=== PATIENT | female | born 1960 | race Caucasian/White ===

== ENCOUNTER → 2016-10-24 | Outpatient (CLI) | payer MEDICARE, MEDICAID ==
[2015-11-02 21:12] VITALS: BP 178/86
[~2016-10-24] MED LIST: ACLI400A2 IH; BACL10TA PO; CIPR500T PO; CITA40TA12 PO; GUAI1TAB27 PO; LISI10TA2 PO; POTASSIUM CHLO10 MEQ PO; PROAIR HFA8.5 GM INH; PROP10TA PO; QUET150T PO; TRAZ100T12 PO; hydrocodone
--- NOTE | 2016-10-24 09:02 | RAD ---
DATE: 10/24/2016 EXAM: DIGITAL SCREEN BILAT W/CAD HISTORY: Routine screening COMPARISON: Baseline study This study was interpreted with the benefit of Computerized Aided Detection (CAD). The breast parenchyma shows scattered fibroglandular densities. Breast parenchyma level B. FINDINGS: There are several tiny smooth nodules projected over the axillary tail regions of the breasts compatible with intramammary lymph nodes. No suspicious breast densities are seen. No significant microcalcifications are evident. IMPRESSION: There is no mammographic evidence of malignancy in either breast. BI-RADS CATEGORY: 2 BENIGN FINDING(S) RECOMMENDED FOLLOW-UP: 12M 12 MONTH FOLLOW-UP PQRS compliance statement: Patient information was entered into a reminder system with a target due date for the next mammogram. Mammography is a sensitive method for finding small breast cancers, but it does not detect them all and is not a substitute for careful clinical examination. A negative mammogram does not negate a clinically suspicious finding and should not result in delay in biopsying a clinically suspicious abnormality. "Our facility is accredited by the [employer] Mammography Program."
--- NOTE | 2016-10-24 09:12 | RAD ---
Abdominal ultrasound, 10/24/2016: History: Right upper quadrant pain The gallbladder is within normal limits in size. There is no sonographic evidence of cholelithiasis. The gallbladder dunbar are not thickened. The common hepatic duct is of normal caliber. The visualized portions of the liver, pancreas and spleen are unremarkable. There is aortic atherosclerosis without evidence of aneurysm. The inferior vena cava is unremarkable. There is a 1.3 cm cyst in the upper pole of the right kidney. A 1.6 cm cyst is noted laterally in the left kidney. The kidneys are otherwise unremarkable without evidence of obstruction. No free fluid is evident in the abdomen. IMPRESSION: 1. Single bilateral renal cysts. 2. No acute abdominal abnormality is detected.
== END | disposition home or self-care (01) ==
LOC: US 06:41
PROVIDERS: ATTEND Physician Assistant
DX: Z12.31 Encounter for screening mammogram for malignant neoplasm of breast (principal); R10.11 Right upper quadrant pain; N28.1 Cyst of kidney, acquired
CPT/HCPCS: 76700; G0202; 77067

== ENCOUNTER → 2016-10-30 | Outpatient (CLI) | payer MEDICARE, MEDICAID ==
[2015-11-02 21:12] VITALS: BP 178/86
--- NOTE | 2016-10-30 14:25 | RAD ---
Screening for lung malignancy. History of smoking. Noncontrast imaging suggested the chest was performed. No prior CT imaging of the chest is available. Imaging through the upper abdomen is unremarkable. There is some coronary artery calcification. There is no significant hilar or mediastinal adenopathy. Kyphoplasty changes are noted at a thoracolumbar vertebral body segment. There is some mild emphysematous change in the upper lobes. An acute parenchymal infiltrate is not seen. A dominant soft tissue mass is not apparent. There is no evidence of malignancy. There is slight reticulonodular prominence in the right upper lobe, axial images 188 through 92. This is nonspecific. It may be chronic. Inflammatory focus is not excluded. IMPRESSION: Negative study for malignancy. Slight reticulonodular prominence in the right upper lobe. This is nonspecific Lung BI-RADS 2. Benign findings PQRS Compliance Statement: One or more of the following individualized dose reduction techniques were utilized for this examination: 1. Automated exposure control 2. Adjustment of the mA and/or kV according to patient size 3. Use of iterative reconstruction technique
== END | disposition home or self-care (01) ==
LOC: CT 10:33
PROVIDERS: ATTEND Physician Assistant
DX: Z12.2 Encounter for screening for malignant neoplasm of respiratory organs (principal); F17.210 Nicotine dependence, cigarettes, uncomplicated
CPT/HCPCS: 71250

== ENCOUNTER → 2017-02-06 | Outpatient (CLI) | payer MEDICARE, MEDICAID ==
[2015-11-02 21:12] VITALS: BP 178/86
[~2017-02-06] MED LIST changes: +CONTRAST GIVEN MC PRN; +IOHEXOL 240 MG/ML 50ML VIAL. PO ONE; +IOHEXOL 300 MG/ML 75 ML VIAL IV ONE
--- NOTE | 2017-02-06 14:32 | RAD ---
CT of the abdomen and pelvis with contrast, 02/06/2017: History: Right lower quadrant pain Multidetector CT imaging was performed following oral and IV administration of contrast. The liver demonstrates a prominent Larry's lobe. No hepatic mass or bile duct dilatation is seen. The gallbladder is unremarkable. No pancreatic abnormality is detected. The spleen is of normal size. There are several small cysts in both kidneys. The kidneys show no evidence of obstruction. Moderate aortoiliac calcific plaquing is present without evidence of aneurysm. No abdominal or pelvic adenopathy is seen. The uterus is surgically absent. The bowel loops are not dilated. A portion of the appendix is visualized and it shows no abnormality. No free air is present in the abdomen or pelvis. A trace amount of free fluid is present in the pelvis on the right. There there is a vertebral compression fracture with vertebroplasty change at L1. There has been a sacroplasty on the right. IMPRESSION: 1. Trace amount of free fluid in the pelvis. 2. Otherwise no acute abdominal or pelvic abnormality is detected. PQRS Compliance Statement: One or more of the following individualized dose reduction techniques were utilized for this examination: 1. Automated exposure control 2. Adjustment of the mA and/or kV according to patient size 3. Use of iterative reconstruction technique
== END | disposition home or self-care (01) ==
LOC: CT 10:01
PROVIDERS: ATTEND Physician Assistant
DX: R10.31 Right lower quadrant pain (principal); M48.56XA Collapsed vertebra, not elsewhere classified, lumbar region, initial encounter for fracture
CPT/HCPCS: 74177; Q9966; Q9967

== ENCOUNTER → 2017-10-31 | Outpatient (CLI) | payer OTHER, MEDICAID, MEDICARE | END | disposition home or self-care (01) | LOC: CT 13:59 | DX: Z12.2 Encounter for screening for malignant neoplasm of respiratory organs (principal); F17.200 Nicotine dependence, unspecified, uncomplicated; J43.8 Other emphysema; I10 Essential (primary) hypertension; Z79.899 Other long term (current) drug therapy | CPT/HCPCS: G0297 ==

== ENCOUNTER → 2018-05-27 | Outpatient (CLI) | payer OTHER, MEDICAID ==
[2015-11-02 21:12] VITALS: BP 178/86
[~2018-05-27] MED LIST changes: -ACLI400A2 IH; +ACLI400A3 IH; +ALBU2.5V8 INH; -CONTRAST GIVEN MC PRN; +GUAI1TAB10 PO; -GUAI1TAB27 PO; +IOHEXOL 300 MG/ML 100ML VIAL. IV ONE; -IOHEXOL 300 MG/ML 75 ML VIAL IV ONE; +POTA10TA12 PO; -POTASSIUM CHLO10 MEQ PO; -PROAIR HFA8.5 GM INH; -QUET150T PO; +QUET150T2 PO; +TRAZ-86 PO; -TRAZ100T12 PO
--- NOTE | 2018-05-27 12:59 | RAD ---
CT of the abdomen and pelvis with contrast, 05/27/2018: HISTORY: Right-sided abdominal pain, previous cervical cancer Multidetector CT imaging was performed following oral and IV administration of contrast. Comparison is made to a study from 02/06/2017. No hepatic abnormality is seen. The gallbladder is unremarkable. The pancreas shows no abnormality. The spleen is of normal size. Several cysts are present in both kidneys. The kidneys show no evidence of obstruction. No adrenal abnormality is detected. There is moderate aortoiliac calcific plaquing. No abdominal or pelvic adenopathy is seen. The uterus is surgically absent. The cecum is low-lying in the pelvis. The bowel loops are not dilated. The appendix is unremarkable. No free fluid or free air is evident in the abdomen or pelvis. There is cement in the right sacral wing compatible with a prior sacroplasty. There is also an old T12 vertebral compression fracture with vertebroplasty change. IMPRESSION: 1. Bilateral renal cysts. 2. No acute abdominal or pelvic abnormality is detected. PQRS Compliance Statement: One or more of the following individualized dose reduction techniques were utilized for this examination: 1. Automated exposure control 2. Adjustment of the mA and/or kV according to patient size 3. Use of iterative reconstruction technique Electronically signed by: Buddy Forman MD (05/27/2018 12:56 PM) [facility]
== END | disposition home or self-care (01) ==
LOC: CT 08:49
PROVIDERS: ATTEND Physician Assistant Medical
DX: N28.1 Cyst of kidney, acquired (principal); M48.54XD Collapsed vertebra, not elsewhere classified, thoracic region, subsequent encounter for fracture with routine healing; Z85.41 Personal history of malignant neoplasm of cervix uteri
CPT/HCPCS: 74177; Q9966; Q9967

== ENCOUNTER → 2018-07-02 | Outpatient (CLI) | payer OTHER, MEDICAID ==
[2015-11-02 21:12] VITALS: BP 178/86
[~2018-07-02] MED LIST changes: +ACLI400A2 IH; -ACLI400A3 IH; -IOHEXOL 240 MG/ML 50ML VIAL. PO ONE; -IOHEXOL 300 MG/ML 100ML VIAL. IV ONE
--- NOTE | 2018-07-02 12:54 | KCIC ---
Examination: 2 views of the right tibia and fibula, 3 views of the left foot HISTORY: History of right lower leg pain, left foot pain COMPARISON: None available FINDINGS: The alignment of the tibia and fibula grossly appears unremarkable. There is no obvious acute fracture. The alignment of the tarsal bones, tarsometatarsal joints, metatarsophalangeal joints, interphalangeal joints grossly appears unremarkable. Mild degenerative changes identified in the first metatarsophalangeal joint. IMPRESSION: No acute osseous findings. Electronically signed by: Baljinder Street MD (07/02/2018 12:51 PM) [id number]
== END | disposition home or self-care (01) ==
LOC: KCIC 10:09
PROVIDERS: ATTEND Family Medicine
DX: M19.071 Primary osteoarthritis, right ankle and foot (principal); M19.072 Primary osteoarthritis, left ankle and foot
CPT/HCPCS: 73590; 73630

== ENCOUNTER → 2019-08-12 | Outpatient (CLI) | payer OTHER, MEDICAID ==
[2015-11-02 21:12] VITALS: BP 178/86
[~2019-08-12] MED LIST changes: -ACLI400A2 IH; +ACLI400A3 IH; +TRAZ-123 PO; -TRAZ-86 PO
--- NOTE | 2019-08-12 10:46 | RAD ---
Examination: VENOUS LOWER EXTREMITY RIGHT History: Right leg pain and swelling Comparison/Correlation: None FINDINGS: Right lower extremity duplex venous ultrasound exam was performed. Grayscale, color Doppler, and spectral Doppler imaging was performed. Compression and augmentation was performed. The right common femoral vein, superficial femoral vein, popliteal vein, and saphenofemoral junction are normal with no evidence of deep venous thrombus. Visualized right calf veins are unremarkable. Normal compressibility and augmentation is evident. IMPRESSION: Normal right lower extremity duplex ultrasound exam. No evidence of deep venous thrombus involving the right lower extremity. Electronically signed by: Altaf Elizabeth MD (08/12/2019 10:43 AM) [id number]
== END | disposition home or self-care (01) ==
LOC: US 09:04
PROVIDERS: ATTEND Physician Assistant Medical
DX: M79.89 Other specified soft tissue disorders (principal); M79.604 Pain in right leg
CPT/HCPCS: 93971

== ENCOUNTER → 2020-02-28 | Outpatient (CLI) | payer OTHER, MEDICAID ==
[2015-11-02 21:12] VITALS: BP 178/86
--- NOTE | 2020-02-28 16:58 | KCIC ---
FOOT RIGHT 3V DATE: 02/28/2020 12:00 AM INDICATION: Reason: RIGHT FOOT PAIN / Spl. Instructions: Right achilles and foot pain since feeling a strain on 02/24/2020. / History: COMPARISON: None. FINDINGS: Bones: There is no evidence of acute fracture or dislocation. Joints: The joint spaces are normal. Miscellaneous: None. IMPRESSION: No acute osseous abnormality. Electronically signed by: Juan Laws MD (02/28/2020 4:54 PM) [id number]
== END ==
LOC: KCIC 14:26
PROVIDERS: ATTEND Physician Assistant
DX: M79.671 Pain in right foot (principal); R29.898 Other symptoms and signs involving the musculoskeletal system
CPT/HCPCS: 73630

== ENCOUNTER → 2020-11-24 | Outpatient (CLI) | payer OTHER, MEDICAID ==
[2015-11-02 21:12] VITALS: BP 178/86
[~2020-11-24] MED LIST changes: -CIPR500T PO; +CIPR500T2 PO; +LISI10TA16 PO; -LISI10TA2 PO
--- NOTE | 2020-11-24 11:44 | KCIC ---
EXAM: CT CHEST WITHOUT CONTRAST (LDCT LUNG CANCER SCREENING). HISTORY: Risk factors for pulmonary malignancy. Smoker for 51 years, 75 pack-year history. TECHNIQUE: CT of the chest was performed without intravenous contrast using a low-dose lung screening protocol. Findings analysis is based on ACR Lung-RADS v1.1. *One or more of the following individual ized dose reduction techniques were utilized for this examination: 1. Automated exposure control. 2. Adjustment of the mA and/or kV according to patient size. 3. Use of iterative reconstruction technique. RADIATION DOSE: DLP: 81.65 CTDI VOL(per sequence): 2.48 COMPARISON: Similar study dated October 31, 2017. FINDINGS: Nodules: No clinically suspicious nodules. Other findings: Images of the upper abdomen reveal no acute abnormality. Bone windows reveal prior ve rtebral augmentation at T12, no suspicious osteoblastic or osteolytic lesions. There are no pathologically enlarged mediastinal or axillary lymph nodes. There is no pleural or anabel cardial effusion. The heart is not enlarged. Changes of early COPD are redemonstrated and grossly stable. There are a few sparse areas of early in terstitial thickening peripherally in the right upper lung, also stable. Coronary calcifications are seen. IMPRESSION/RECOMMENDATION: 1. ACR Lung-RADS category: 1 . 2. Continue annual screening with LDCT in 12 months. Electronically signed by: Sandro Martins MD (11/24/2020 11:41 AM) [id number]
== END ==
LOC: KCIC CT 09:55
PROVIDERS: ATTEND Family Medicine
DX: Z12.2 Encounter for screening for malignant neoplasm of respiratory organs (principal); J44.9 Chronic obstructive pulmonary disease, unspecified; F17.218 Nicotine dependence, cigarettes, with other nicotine-induced disorders; I25.10 Atherosclerotic heart disease of native coronary artery without angina pectoris
CPT/HCPCS: 71271